=== PATIENT | female | born 1950 | race Caucasian/White ===

== ENCOUNTER 2017-03-18 12:42 | Emergency (ER) | payer OTHER, BC ==
[~2017-03-18] VITALS: Ht 170.2 cm; Wt 72.4 kg
[2017-03-18 15:40] VITALS: BP 115/61
== END 2017-03-18 15:43 | disposition home or self-care (01) ==
LOC: EME 12:42
DX: S06.0X0A Concussion without loss of consciousness, initial encounter (principal); V49.9XXA Car occupant (driver) (passenger) injured in unspecified traffic accident, initial encounter
CPT/HCPCS: 99281; 99283